=== PATIENT | male | born 1950 | race Caucasian/White ===

== ENCOUNTER 2017-04-05 09:17 | Inpatient (IN) | payer MEDICARE, MEDICAID ==
[~2017-04-05] VITALS: Ht 182.9 cm; Wt 81.6 kg
[2017-04-05 09:41] LABS: BASOPHILS % (AUTO) 0.4 % (0.0-2.0); EOSINOPHILS # (AUTO) 0.1 /CMM (0.0-0.7); HEMATOCRIT 43 % (39-51); HEMOGLOBIN 14.3 g/dL (13.5-17.5); LYMPHOCYTES # (AUTO) 1.3 /CMM (0.8-4.8); MEAN CORPUSCULAR HEMOGLOBIN 29 PG (26.0-33.0); MEAN CORPUSCULAR HGB CONC 33 g/dl (31.0-36.0); MEAN CORPUSCULAR VOLUME 87 fL (80-96); MONOCYTES # (AUTO) 0.3 /CMM (0.1-1.30); MONOCYTES % (AUTO) 5.8 % (2.0-12.0); NEUTROPHILS % (AUTO) 69.8 % (43.0-81.0); PLATELET COUNT (AUTO) 224 /CMM (150-450); RDW COEFFICIENT OF VARIATION 13.3 (11.5-15.0); RED BLOOD CELL COUNT(AUTO) 4.98 MIL/uL (4.5-6.0); WHITE BLOOD COUNT (AUTO) 5.7 K/uL (4.3-11.0)
[2017-04-05] MEDS ORDERED: METO25TA20 PO (09:43)
[2017-04-05] MEDS ORDERED: QUET200T PO (09:43)
[2017-04-05] MEDS ORDERED: OMEP40CA37 PO (09:43)
[2017-04-05] MEDS ORDERED: BUPR300T52 PO (09:43)
[2017-04-05] MEDS ORDERED: GABA-534 PO (09:43)
[2017-04-05] MEDS ORDERED: HYDR-552 PO (09:43)
[2017-04-05] MEDS ORDERED: TRAM50TA2 PO (09:43)
[2017-04-05] MEDS ORDERED: ATOR40TA PO (09:43)
[2017-04-05 09:51] LABS: CALCIUM, SERUM 8.2 mg/dL (8.5-10.1); CREATININE 1.1 mg/dL (0.6-1.3); POTASSIUM 4.4 mmol/L (3.5-5.1)
[2017-04-05 09:57] LABS: ALBUMIN 3.5 g/dL (3.4-5.0); BILIRUBIN,DIRECT 0.1 mg/dL (0.0-0.2); BILIRUBIN,TOTAL 0.4 mg/dL (0.2-1.0); TOTAL PROTEIN, SERUM 7.2 g/dL (6.4-8.2)
[2017-04-05] MEDS ORDERED: LIDOCAINE 1%-EPI 1:100,000 50 ML VIAL IJ ONE (10:00)
[2017-04-05] MEDS ORDERED: TDAP [DIPH/PERTUSSIS/TET] 0.5 ML VIAL IM ONE ×2 (10:00→10:06)
[2017-04-05] MEDS ORDERED: LIDOCAINE HCL/PF 1% 30 ML SDV ONE (10:06)
[2017-04-05 10:07] LABS: PROTHROMBIN TIME 10.4 SECS (9.5-12.7)
[2017-04-05] MEDS ORDERED: HALOPERIDOL LACTATE INJ 5 MG/ML VIAL ONE (10:29)
[2017-04-05] MEDS ORDERED: BENZTROPINE MESYLATE (2MG/2ML) 2 MG/2 ML AMPUL ONE (10:29)
[2017-04-05] MEDS ORDERED: LORAZEPAM INJ 2 MG/ML VIAL ONE (10:30)
[2017-04-05] MEDS ORDERED: HALOPERIDOL LACTATE INJ 5 MG/ML VIAL IM ONE (10:30)
[2017-04-05] MEDS ORDERED: LORAZEPAM INJ 2 MG/ML VIAL IM ONE (10:30)
[2017-04-05] MEDS ORDERED: BENZTROPINE MESYLATE (2MG/2ML) 2 MG/2 ML AMPUL IM ONE (10:30)
--- NOTE | 2017-04-05 12:00 | NUR ---
ASSUME PT CARE. HERE FOR MEDICAL AND PSYCH EVAL. SI. PRESENTS W/ LFA LACERATION FOR POSSIBLE SELF INFLICT WOUND APPROX 5CM. ERICK YADAV AT BEDSIDE FOR LAC REPAIR. ON MONITOR. STABLE VITAL. WILL CONTINUE TO MONITOR.
--- NOTE | 2017-04-05 12:25 | NUR ---
PATIENT WILL BE ADMITTED INTO ROOM 212-2.
--- NOTE | 2017-04-05 12:29 | NUR ---
CALLED ART MONEY MANAGER, ETA OF 1HR WAS GIVEN.
--- NOTE | 2017-04-05 14:18 | NUR ---
ART MONORAIL OPERATOR AT BEDSIDE FOR PSYCH EVAL.
--- NOTE | 2017-04-05 15:38 | NUR ---
REPORT GIVEN TO BLAYNE. PT AWAITING TRANSFER TO FLOOR.
[2017-04-05 16:00] VITALS: BP 103/65
--- NOTE | 2017-04-05 16:04 | NUR ---
GPS RN: RECEIVED PATIENT FROM THE ER, NOT IN ANY DISTRESS, UNCOOPERATIVE, GUARDED, IRRITABLE, REFUSED SKIN ASSESSMENT, REFUSED TO SIGN PAPERWORK. PER ER REPORT PATIENT CAME IN DRUNK WITH 5 CM LEFT ARM SELF-INFLICTED LACERATION, WHICH WAS STITCHED IN THE ER AND COVERED WITH DRESSING. PATIENT STILL APPEARED TO BE INEBRIATED AT THIS TIME, FELL ASLEEP IN THE MIDDLE OF THE CONVERSATION. CONTINUE TO MONITOR.
[2017-04-05] MEDS ORDERED: MAGNESIUM HYDROXIDE 30 ML UDC PO PRN (16:30)
[2017-04-05] MEDS ORDERED: ACETAMINOPHEN 325 MG TABLET PO PRN (16:30)
[2017-04-05] MEDS ORDERED: TEMAZEPAM 7.5 MG CAPSULE PO PRN (16:30)
[2017-04-05] MEDS ORDERED: LORAZEPAM 0.5 MG TABLET PO PRN (16:30)
[2017-04-05] MEDS ORDERED: MAG HYDROX/AL HYDROX/SIMETH 30 ML UDC PO PRN (16:30)
--- NOTE | 2017-04-05 16:35 | NUR ---
GPS RN: DR. HUDDLESTON NOTIFIED TO RECONCILE MEDS.
[2017-04-05] MEDS ORDERED: TRAMADOL HCL 50 MG TABLET PO PRN (18:00)
[2017-04-05] MEDS ORDERED: HYDROCODONE/APAP 5/325MG 1 EACH TABLET PO PRN (18:00)
--- NOTE | 2017-04-05 18:13 | NUR ---
GPS RN: PATIENT IS STILL ASLEEP SINCE ADMISSION AT 1600. UNABLE TO PERFORM SKIN ASSESSMENT, WILL ENDORSE TO THE UPCOMING SHIFT.
[2017-04-05 20:36] VITALS: BP 127/72
--- NOTE | 2017-04-06 06:47 | NUR ---
GPS RN NOTE: PATIENT STILL REFUSED SKIN ASSESSMENT. PATIENT NOTED TO BE DEPRESSED AND ISOLATIVE, UNCOOPERATIVE, REFUSED INTERACTION AND EASILY AGITATED. CN AWARE. WILL CONTINUE TO MONITOR [id number] FOR SAFETY
--- NOTE | 2017-04-06 07:04 | NUR ---
GPS RN NOTE: PATIENT REFUSED LAB DRAW. EXPLAINED THE RISK AND BENEFITS, PATIENT STILL REFUSED, WILL ENDORSE TO THE NEXT SHIFT TO CONTINUE TO FOLLOW UP.
[2017-04-06] MEDS ORDERED: PANTOPRAZOLE 40 MG TABLET.DR PO SCH (07:30)
[2017-04-06 08:00] VITALS: BP 132/65
[2017-04-06] MEDS ORDERED: ATORVASTATIN 40 MG TABLET PO SCH (09:00)
[2017-04-06] MEDS: GABAPENTIN 300 MG CAPSULE PO SCH ×3 (09:04→16:45)
[2017-04-06] MEDS: METOPROLOL TARTRATE 25 MG TABLET PO SCH ×2 (09:05→16:45)
[2017-04-06] MEDS ORDERED: NICOTINE PATCH (21MG) 21 MG PATCH.TD24 TD SCH (11:30)
[2017-04-06] MEDS ORDERED: QUETIAPINE FUMARATE 25 MG TABLET PO SCH (13:00)
[2017-04-06 13:28] LABS: ALBUMIN 3.2 g/dL (3.4-5.0); BILIRUBIN,TOTAL 0.7 mg/dL (0.2-1.0); CALCIUM, SERUM 8.4 mg/dL (8.5-10.1); TOTAL PROTEIN, SERUM 7.1 g/dL (6.4-8.2)
[2017-04-06 13:30] LABS: CHOLESTEROL 150 mg/dL (<200); HDL CHOLESTEROL 47 mg/dL (40-60); LDL 86 mg/dL (0-99); TRIGLYCERIDES 112 mg/dL (30-150)
[2017-04-06 16:00] VITALS: BP 140/88
--- NOTE | 2017-04-06 16:14 | NUR ---
GPS/RN PT C/O CHEST PAIN. DR HUDDLESTON CALLED FOR THE ORDERS. WAITING FOR CALL BACK.
--- NOTE | 2017-04-06 16:38 | NUR ---
GPS/RESEARCH CHEF ORDERS FROM DR KISER RECEIVED AND CARRIED OUT. WAITING FOR ROOM TO TRANSFER THE PATIENT TO TELE.
[2017-04-06 16:45] VITALS: BP 117/71
--- NOTE | 2017-04-06 17:15 | NUR ---
GPS/RN PT TRANSFERRED TO TELE 3W WITH SITTER .REPORT GIVEN TO ANNI CHOWDARY AT THE BEDSIDE. 1700 MEDS GIVEN PRIOR TO D/C
[2017-04-06] MEDS ORDERED: QUETIAPINE FUMARATE 100 MG TABLET PO SCH (22:00)
== END 2017-04-06 17:11 | disposition short-term general hospital (02) | DRG 876 ==
LOC: ER 09:26 → GPS 15:00
PROVIDERS: ADMIT Psychiatry & Neurology Psychosomatic Medicine; ATTEND Internal Medicine
PROC: 0JQF0ZZ Repair Left Upper Arm Subcutaneous Tissue and Fascia, Open Approach (ICD-10-PCS; principal; 2017-04-05)
DX: F31.9 Bipolar disorder, unspecified (principal); R45.851 Suicidal ideations; F23 Brief psychotic disorder; F10.10 Alcohol abuse, uncomplicated; S51.812A Laceration without foreign body of left forearm, initial encounter; X58.XXXA Exposure to other specified factors, initial encounter; Y92.89 Other specified places as the place of occurrence of the external cause; G62.9 Polyneuropathy, unspecified; I10 Essential (primary) hypertension; E78.5 Hyperlipidemia, unspecified; I25.10 Atherosclerotic heart disease of native coronary artery without angina pectoris
CPT/HCPCS: 36415; 80048-TC; 80053-TC; 80061-TC; 80076-TC; 80305; 84484-TC; 85025-TC; 85730-TC; 87081-TC; 90715; A4606; A6402; A6403; G0480; J0515; J1630; J2060; J3490; Z7610

== ENCOUNTER 2017-04-06 17:25 | Inpatient (IN) | payer MEDICARE, MEDICAID ==
[~2017-04-06] VITALS: Ht 182.9 cm; Wt 81.6 kg
[2017-04-06] VITALS: BP 93/51
[~2017-04-06 17:25] MED LIST: ATOR40TA PO; BUPR300T52 PO; GABA-534 PO; HYDR-552 PO; METO25TA20 PO; OMEP40CA37 PO; QUET200T PO; TRAM50TA2 PO
--- NOTE | 2017-04-06 17:25 | NUR ---
DRAW STRING KNOTTER NOTES RECEIVED PT FROM [facility] PSYCH, AWAKE, HOB ELEVATED, NO SOB OR DISTRESS NOTED. PATIENT COMPLAINS OF PRESSURE IN THE PAIN 3/10 PAIN LEVEL. PT A/O X 3 VERBALLY RESPONSIVE AND ABLE TO MAKE TO NEEDS KNOWN. KEPT PATIENT CLEAN AND COMFORTABLE IN BED, CALL LIGHT WITHIN PATIENT REACH. WILL CONTINUE TO MONITOR ACCORDINGLY.
[2017-04-06] MEDS ORDERED: TEMAZEPAM 7.5 MG CAPSULE PO PRN (17:57)
[2017-04-06] MEDS ORDERED: MAG HYDROX/AL HYDROX/SIMETH 30 ML UDC PO PRN (17:57)
[2017-04-06] MEDS ORDERED: LORAZEPAM 0.5 MG TABLET PO PRN (17:57)
[2017-04-06] MEDS ORDERED: ACETAMINOPHEN 325 MG TABLET PO PRN (17:57)
[2017-04-06] MEDS ORDERED: MAGNESIUM HYDROXIDE 30 ML UDC PO PRN (17:57)
[2017-04-06 18:38] LABS: HEMOGLOBIN 15.1 g/dL (13.5-17.5)
--- NOTE | 2017-04-06 18:56 | NUR ---
RN CLOSING NOTES ALL NEEDS PROVIDED, ATTENDED AND ANTICIPATED. KEPT PATIENT CLEAN AND COMFORTABLE IN BED. CALL LIGHT WITHIN PATIENT REACH, WILL CONTINUE TO MONITOR ACCORDINGLY. ENDORSED TO NEXT SHIFT RN TO CONTINUE CARE.
--- NOTE | 2017-04-06 19:26 | NUR ---
ASSOCIATE PROFESSOR OF MEDICINE OPENING NOTES: RECEIVED PT IN BED AWAKE. PT IS A/OX 4. SITTER AT BEDSIDE. PT IS ON TELE AND IS SINUS CHARLES 50S. PT IS ON ROOM AIR AND IS TOLERATING WELL. CALL LIGHT WITHIN PT'S REACH. BED KEPT IN LOW, LOCKED POSITION, AND SIDE RAILS X 2 UP. PT HAS NO IV AT THIS MOMENT. WILL CONTINUE TO MONITOR PT.
[2017-04-06] MEDS ORDERED: ASPIRIN 81 MG TAB.CHEW ONE (19:40)
[2017-04-06 20:00] VITALS: BP 112/68
[2017-04-06] MEDS: ASPIRIN 81 MG TAB.CHEW PO SCH (20:13)
[2017-04-06] MEDS: TRAMADOL HCL 50 MG TABLET PO PRN (20:24)
--- NOTE | 2017-04-06 20:24 | NUR ---
PET TECHNOLOGIST NOTES: PT COMPLAINED OF 8/10 LOWER BACK PAIN. PT WAS ADMINISTERED ULTRAM 50MG PO. WILL CONTINUE TO MONITOR PT.
[2017-04-06 20:25] LABS: CHOLESTEROL 149 mg/dL (<200); HDL CHOLESTEROL 44 mg/dL (40-60); LDL 86 mg/dL (0-99); TRIGLYCERIDES 116 mg/dL (30-150)
--- NOTE | 2017-04-06 22:31 | NUR ---
SPINNING FRAME CHANGER NOTES: PT REQUESTED FOR RESTORIL. PT WAS ADMINISTERED RESTORIL. WILL CONTINUE TO MONITOR PT.
--- NOTE | 2017-04-06 23:27 | NUR ---
BOX ANNEALER NOTE: SPOKE TO DR. RODAS ABOUT PT REQUESTING NEOSPORIN FOR HIS CLOSED WOUND ON HIS L ARM. PT IS Addendum: 04/06/17 at 4709 by JILLIAN WEINBERG RN PT IS REQUESTING FOR NEOSPORIN TO APPLY AROUND IT. GOT THE ORDER.
--- NOTE | 2017-04-06 23:40 | NUR ---
ELECTRONIC TEST TECHNICIAN NOTE: SENT ORDER FOR NEOSPORIN TO VOCATIONAL TECHNICAL EDUCATION TEACHER LYDIA VIA FAX. LYDIA SAID IT WAS UNAVAILABLE AND SAID TO TRY [facility]. CALLED [facility] AND CHECKED TO SEE IF THEY HAVE NEOSPORIN. [facility] CALLED BACK AND SAID THEY DO NOT HAVE NEOSPORIN WELL. WILL ENDORSE WITH AM NURSE.
[2017-04-07] VITALS (7 sets, daily range): BP systolic 93–126; BP diastolic 51–85
--- NOTE | 2017-04-07 01:50 | NUR ---
PASTE MIXER LIQUID NOTES: PT REPORTED THAT HE IS UPSET THAT HE IS GETTING BLOOD DRAWN AGAIN FOR THE THIRD TIME FOR HIS TROPONIN LEVEL AT THIS TIME. PT WAS ADMINISTERED ATIVAN 1MG PO.
--- NOTE | 2017-04-07 01:54 | NUR ---
PATIENT CARE DIRECTOR NOTES: SPOKE WITH DR. RODAS IN REGARDS TO HIS SEROQUEL 200MG PO HS. DR. RODAS MENTIONED THAT IT HAS TO BE PYSTEPHANIE SIMENTAL TO CARRY ON THE ORDER. CHARGE NURSE AWARE WELL. WILL CLARIFY DURING THE DAY. PT IS UNABLE TO SLEEP EVEN AFTER RESTORIL. WILL OFFER ATIVAN 1MG PO INSTEAD.
[2017-04-07] MEDS: HYDROCODONE/APAP 5/325MG 1 EACH TABLET PO PRN (05:01)
--- NOTE | 2017-04-07 05:01 | NUR ---
ROUTING CLERK NOTES: PT COMPLAINED OF 8/10 LOWER BACK PAIN. PT WAS ADMINISTERED NORCO 5-325MG PO. WILL CONTINUE TO MONITOR PT.
--- NOTE | 2017-04-07 06:55 | NUR ---
SPARK PLUG TESTER CLOSING NOTES: ALL NEEDS WERE ATTENDED AND ANTICIPATED FOR. SITTER AT BEDSIDE. PT IS IN BED, RESTING. PT IS A/OX 4. PT IS ON TELE AND IS SR 64. PT IS ON ROOM AIR AND IS TOLERATING WELL. CALL LIGHT WITHIN PT'S REACH. BED KEPT IN LOW, LOCKED POSITION, AND SIDE RAILS X 2 UP. PT HAS IV ON R FOREARM #22G AND IS PATENT AND INTACT. KEPT CLEAN, DRY, AND COMFORTABLE. WILL ENDORSE TO AM NURSE FOR TRIXIE.
--- NOTE | 2017-04-07 07:31 | NUR ---
MEDICAL CLAIMS PROCESSOR OPEN NOTES RECEIVED REPORT FROM CUTTER GAS NURSE. PATIENT IS IN BED, ALERT AND ORIENTED TO NAME, TIME AND PLACE. NO SIGNS AND SYMPTOMS OF DISTRESS. 1:1 SITTER FOR SAFETY PATIENT DTS. BED IN LOW POSITION, LOCKED AND TWO SIDE RAILS ARE UP. WILL CONTINUE TO MONITOR AND ASSESS PATIENT.
[2017-04-07] MEDS: GABAPENTIN 300 MG CAPSULE PO SCH ×3 (08:38→17:12)
[2017-04-07] MEDS: ASPIRIN 81 MG TAB.CHEW PO SCH (08:41)
[2017-04-07] MEDS: ATORVASTATIN 40 MG TABLET PO SCH (08:41)
[2017-04-07] MEDS: NICOTINE PATCH (21MG) 21 MG PATCH.TD24 TD SCH (08:42)
[2017-04-07] MEDS: PANTOPRAZOLE 40 MG TABLET.DR PO SCH (08:42)
[2017-04-07] MEDS: METOPROLOL TARTRATE 25 MG TABLET PO SCH ×2 (08:42→17:13)
--- NOTE | 2017-04-07 10:05 | NUR ---
MALLORY DYE IS AT BEDSIDE
[2017-04-07] MEDS: NEOMY SULF/BACITRAC ZN/POLY 15 GM TUBE TP PRN (11:26)
[2017-04-07] MEDS: DOCUSATE SODIUM 100 MG CAPSULE PO SCH (11:36)
[2017-04-07] MEDS: TRAMADOL HCL 50 MG TABLET PO PRN (17:12)
--- NOTE | 2017-04-07 19:50 | NUR ---
LIFE SCIENCES MANAGER NOTE: PATIENT RESTING IN BED, NO ACUTE DISTRESS NOTED. BREATHING EVEN AND UNLABORED, NO SOB NOTED. TELE READING SR 70. IV TO RFA IN PLACE. BED LOCKED AND IN LOWEST POSITION, CALL LIGHT IN REACH. WILL CONTINUE TO MONITOR.
[2017-04-07] MEDS ORDERED: QUETIAPINE FUMARATE 100 MG TABLET PO SCH (22:00)
[2017-04-08] VITALS: BP 97/54
[2017-04-08 03:41] VITALS: BP 120/80
--- NOTE | 2017-04-08 04:30 | NUR ---
RETAIL WORKER NOTE: PATIENT SLEEPING IN BED, NO ACUTE DISTRESS NOTED. BREATHING EVEN AND UNLABORED, NO SOB NOTED. SITTER AT BEDSIDE. BED LOCKED AND IN LOWEST POSITION, CALL LIGHT IN REACH. WILL CONTINUE TO MONITOR.
--- NOTE | 2017-04-08 06:15 | NUR ---
SOIL SCIENCE PROFESSOR NOTE: PATIENT RESTING IN BED, NO ACUTE DISTRESS NOTED. BREATHING EVEN AND UNLABORED, NO SOB NOTED. TELE READING SR 61. IV TO RFA IN PLACE. SITTER AT BEDSIDE. BED LOCKED AND IN LOWEST POSITION, CALL LIGHT IN REACH. WILL ENDORSE TO DAY NURSE TO CONTINUE WITH PLAN OF CARE.
[2017-04-08 06:30] LABS: BASOPHILS % (AUTO) 0.2 % (0.0-2.0); EOSINOPHILS # (AUTO) 0.2 /CMM (0.0-0.7); EOSINOPHILS % (AUTO) 2.3 % (0.0-6.0); HEMATOCRIT 45 % (39-51); LYMPHOCYTES # (AUTO) 2.2 /CMM (0.8-4.8); LYMPHOCYTES % (AUTO) 30.8 % (20.0-44.0); MEAN CORPUSCULAR HEMOGLOBIN 29 PG (26.0-33.0); MEAN CORPUSCULAR HGB CONC 33 g/dl (31.0-36.0); MEAN CORPUSCULAR VOLUME 88 fL (80-96); MONOCYTES # (AUTO) 0.5 /CMM (0.1-1.30); MONOCYTES % (AUTO) 6.4 % (2.0-12.0); NEUTROPHILS # (AUTO) 4.3 /CMM (1.8-8.9); NEUTROPHILS % (AUTO) 60.3 % (43.0-81.0); PLATELET COUNT (AUTO) 222 /CMM (150-450); RDW COEFFICIENT OF VARIATION 14.1 (11.5-15.0); RED BLOOD CELL COUNT(AUTO) 5.14 MIL/uL (4.5-6.0); WHITE BLOOD COUNT (AUTO) 7.1 K/uL (4.3-11.0)
[2017-04-08 06:48] LABS: CALCIUM, SERUM 9.1 mg/dL (8.5-10.1); CREATININE 0.9 mg/dL (0.6-1.3)
--- NOTE | 2017-04-08 07:20 | NUR ---
molder vacuum Initial Notes: Received patient resting in bed. Non-labored breathing noted. No shortness of breath. No signs of distress. No facial grimaces.. IV patent and intact. Bed at lowest position. Call light within reach. Heart rhythm 102/min, sinus rhythm. Will continue to monitor. Sitter at bedside.
[2017-04-08 08:00] VITALS: BP 126/75
[2017-04-08] MEDS: DOCUSATE SODIUM 100 MG CAPSULE PO SCH (08:14)
[2017-04-08] MEDS: ATORVASTATIN 40 MG TABLET PO SCH (08:14)
[2017-04-08] MEDS: PANTOPRAZOLE 40 MG TABLET.DR PO SCH (08:14)
[2017-04-08] MEDS: ASPIRIN 81 MG TAB.CHEW PO SCH (08:14)
[2017-04-08] MEDS: GABAPENTIN 300 MG CAPSULE PO SCH ×2 (08:15→12:27)
[2017-04-08] MEDS: METOPROLOL TARTRATE 25 MG TABLET PO SCH (08:15)
[2017-04-08] MEDS: NICOTINE PATCH (21MG) 21 MG PATCH.TD24 TD SCH (08:17)
[2017-04-08] MEDS: HYDROCODONE/APAP 5/325MG 1 EACH TABLET PO PRN (08:48)
--- NOTE | 2017-04-08 11:12 | NUR ---
WOUND CARE CONSULT: PT PRESENTS WITH SUTURED LACERATION TO LEFT ARM WITH SLIGHT REDNESS AND SLIGHT WEEPING. RECOMMEND SURGICAL FOLLOW UP. SMALL DRY ABRASION NOTED PROXIMALLY, NO DRAINAGE. RECOMMENDATIONS MADE FOR PROTECTION OF AREA. DISCUSSED WITH NURSING STAFF. WILL SEE PRN.
[2017-04-08 12:00] VITALS: BP 116/54
[2017-04-08] MEDS: NEOMY SULF/BACITRAC ZN/POLY 15 GM TUBE TP PRN (12:50)
[2017-04-08] MEDS ORDERED: QUET200T PO (13:22)
--- NOTE | 2017-04-08 15:50 | NUR ---
branding machine tenderhoistman notes Discharge instructions given to patient and able to understand instructions. Signed discharge paper and belonging list and belonging (wallet) from the safe given to patient. Discontinued IV and pressured applied to prevent bleeding. Flu vaccine not given due to off season. Pneumonia vaccine is not given also due to patient is <65 years old. Picture taken by mechanical maintenance foreman RN and filed in the chart. Patient friend (Rojelio) came to pick up driver the patient. Patient left the hospital in stable condition via ambulatory and tolerated well. Vital signs checked and recorded. MD and charge nurse aware.
== END 2017-04-08 16:00 | disposition home or self-care (01) | DRG 206 ==
LOC: TELE 17:25
PROVIDERS: ADMIT Internal Medicine; ATTEND Internal Medicine
DX: M94.0 Chondrocostal junction syndrome [Tietze] (principal); G62.9 Polyneuropathy, unspecified; I10 Essential (primary) hypertension; I25.10 Atherosclerotic heart disease of native coronary artery without angina pectoris; E78.5 Hyperlipidemia, unspecified; Z91.19 Patient's noncompliance with other medical treatment and regimen; F29 Unspecified psychosis not due to a substance or known physiological condition; Z73.6 Limitation of activities due to disability; F10.10 Alcohol abuse, uncomplicated; F31.9 Bipolar disorder, unspecified; Y90.9 Presence of alcohol in blood, level not specified; S51.812D Laceration without foreign body of left forearm, subsequent encounter; X58.XXXD Exposure to other specified factors, subsequent encounter; Z79.899 Other long term (current) drug therapy
CPT/HCPCS: 36415; 80048-TC; 80061-TC; 84484-TC; 85025-TC; 85027-TC; 93307-TC; Z7610

== ENCOUNTER 2017-04-22 17:30 | Emergency (ER) | payer MEDICARE, MEDICAID ==
[~2017-04-22] VITALS: Ht 177.8 cm; Wt 81.6 kg
[2017-04-22 17:30] VITALS: BP 110/71
[2017-04-22] MEDS ORDERED: HYDROCODONE/APAP 5/325MG 1 EACH TABLET PO ONE (18:30)
[2017-04-22] MEDS ORDERED: HYDROCODONE/APAP 10/325MG 1 EA TABLET ONE (19:05)
[2017-04-22 19:25] LABS: APPEARANCE,URINE Clear (CLEAR); BILIRUBIN,URINE Negative (NEGATIVE); BLOOD, URINE Trace-lysed Ery/uL (NEGATIVE); COLOR,URINE Yellow (YELLOW); KETONES,URINE Negative (NEGATIVE); LEUKOCYTE ESTERASE ,URINE Negative (NEGATIVE); NITRITE, URINE Negative (NEGATIVE); PROTEIN,URINE 100 mg/dl (NEGATIVE); UGLUCOSE 100 MG/DL mg/dL (NEGATIVE); UROBILINOGEN,URINE 0.2 EU/dL (0.2)
[2017-04-22 19:40] LABS: RBC,URINE 2-3/HPF /HPF (0-2)
[2017-04-22 19:41] LABS: BACTERIA,URINE Rare /HPF (None Seen); MUCUS,URINE Few /LPF (None Seen); SQUAMOUS EPITHELIAL CELL,UR Moderate /HPF (None Seen); URINE AMORPHOUS URATE Few /HPF (None Seen)
== END 2017-04-22 20:10 | disposition home or self-care (01) ==
LOC: ER 17:34
DX: N50.812 Left testicular pain (principal); M54.5 Low back pain; G89.29 Other chronic pain; Q79.59 Other congenital malformations of abdominal wall; N50.3 Cyst of epididymis; I10 Essential (primary) hypertension
CPT/HCPCS: 76870; 81001; 99285; A4606; 81000-TC; Z7610

== ENCOUNTER 2017-05-10 20:31 | Emergency (ER) | payer MEDICARE, MEDICAID ==
[~2017-05-10] VITALS: Ht 177.8 cm; Wt 81.6 kg
[2017-05-10 20:35] VITALS: BP 139/97
== END 2017-05-10 21:20 | disposition home or self-care (01) ==
LOC: ER 20:37
DX: N50.812 Left testicular pain (principal); I10 Essential (primary) hypertension
CPT/HCPCS: 99283; A4606; Z7610

== ENCOUNTER 2017-05-11 00:58 | Emergency (ER) | payer MEDICARE, MEDICAID ==
[~2017-05-11] VITALS: Ht 177.8 cm; Wt 81.6 kg
[2017-05-11 05:26] VITALS: BP 145/68
--- NOTE | 2017-05-11 05:32 | NUR ---
PT RECEIVED 10MG TORADOL IM AT LEFT DELTOID. VSS. EDUCATION PROVIDED TO PATIENT. RECOMMENDED TO SEE UROLOGIST ALREADY PLANNED. PT WAS DISCHARGED AND REFUSED TO REMOVE ID BAND.
== END 2017-05-11 05:32 | disposition home or self-care (01) ==
LOC: ER 01:01
DX: G89.29 Other chronic pain (principal); N50.812 Left testicular pain; I10 Essential (primary) hypertension; G89.4 Chronic pain syndrome
CPT/HCPCS: A4606; J1885; Z7610

== ENCOUNTER 2017-05-11 11:57 | Inpatient (IN) | payer MEDICARE, MEDICAID ==
[~2017-05-11] VITALS: Ht 177.8 cm; Wt 88.9 kg
[2017-05-11 12:29] LABS: BASOPHILS % (AUTO) 0.4 % (0.0-2.0); CALCIUM, SERUM 8.3 mg/dL (8.5-10.1); CARBON DIOXIDE 32 mmol/L (21-32); CHLORIDE 101 mmol/L (98-107); CREATININE 0.9 mg/dL (0.6-1.3); EOSINOPHILS # (AUTO) 0.1 /CMM (0.0-0.7); EOSINOPHILS % (AUTO) 1.2 % (0.0-6.0); GLUCOSE 100 mg/dL (74-106); HEMATOCRIT 42 % (39-51); HEMOGLOBIN 14.1 g/dL (13.5-17.5); LYMPHOCYTES # (AUTO) 2.2 /CMM (0.8-4.8); LYMPHOCYTES % (AUTO) 25.2 % (20.0-44.0); MEAN CORPUSCULAR HEMOGLOBIN 30 PG (26.0-33.0); MEAN CORPUSCULAR HGB CONC 33 g/dl (31.0-36.0); MEAN CORPUSCULAR VOLUME 90 fL (80-96); MONOCYTES # (AUTO) 0.7 /CMM (0.1-1.30); MONOCYTES % (AUTO) 7.9 % (2.0-12.0); NEUTROPHILS # (AUTO) 5.8 /CMM (1.8-8.9); NEUTROPHILS % (AUTO) 65.3 % (43.0-81.0); PLATELET COUNT (AUTO) 267 /CMM (150-450); POTASSIUM 3.6 mmol/L (3.5-5.1); RDW COEFFICIENT OF VARIATION 14.6 (11.5-15.0); SODIUM SERUM 139 mmol/L (136-145); UREA NITROGEN, BLOOD 15 mg/dL (7-18); WHITE BLOOD COUNT (AUTO) 8.8 K/uL (4.3-11.0)
[2017-05-11 12:34] LABS: ACETAMINOPHEN 1 ug/ml (10-30); ALANINE AMINOTRANSFERASE 38 U/L (12-78); ALBUMIN 3.5 g/dL (3.4-5.0); ALCOHOL, BLOOD < 3 mg/dL (0-0); ALKALINE PHOSPHATASE 73 U/L (46-116); ASPARTATE AMINOTRANSFERASE 27 U/L (15-37); BILIRUBIN,DIRECT 0.2 mg/dL (0.0-0.2); BILIRUBIN,TOTAL 0.9 mg/dL (0.2-1.0); SALICYLATE 4.3 mg/dL (2.8-20.0); TOTAL PROTEIN, SERUM 6.8 g/dL (6.4-8.2)
[2017-05-11 12:37] LABS: APPEARANCE,URINE Clear (CLEAR); BILIRUBIN,URINE MODERATE (NEGATIVE); BLOOD, URINE Negative Ery/uL (NEGATIVE); COLOR,URINE Yellow (YELLOW); KETONES,URINE 15 (NEGATIVE); LEUKOCYTE ESTERASE ,URINE Negative (NEGATIVE); NITRITE, URINE Negative (NEGATIVE); PROTEIN,URINE 30 mg/dl (NEGATIVE); UGLUCOSE Negative (NEGATIVE)
[2017-05-11 12:46] LABS: BACTERIA,URINE Rare /HPF (None Seen); RBC,URINE 0-2 /HPF (0-2); SQUAMOUS EPITHELIAL CELL,UR Few /HPF (None Seen); WBC,URINE 0-2 /HPF (0-3)
[2017-05-11 15:50] VITALS: BP 141/86
[2017-05-11 20:00] VITALS: BP_SYST 106; BP_SYST 107; BP_DIAS 66
[2017-05-12 08:08] LABS: ALBUMIN 2.8 g/dL (3.4-5.0); BILIRUBIN,TOTAL 0.4 mg/dL (0.2-1.0); CALCIUM, SERUM 8.6 mg/dL (8.5-10.1); CREATININE 0.8 mg/dL (0.6-1.3); POTASSIUM 3.9 mmol/L (3.5-5.1); TOTAL PROTEIN, SERUM 5.9 g/dL (6.4-8.2)
[2017-05-12 08:20] VITALS: BP 101/59
[2017-05-12 16:00] VITALS: BP 110/67
[2017-05-12 19:44] VITALS: BP 99/80
[2017-05-13 08:00] VITALS: BP 128/77
[2017-05-13 13:00] VITALS: BP 108/78
[2017-05-13 16:00] VITALS: BP 108/78
[2017-05-13 20:18] VITALS: BP 97/47
[2017-05-14 08:00] VITALS: BP 105/63
[2017-05-14 16:00] VITALS: BP 115/64
[2017-05-14 20:27] VITALS: BP 107/68
[2017-05-15 08:10] VITALS: BP 112/73
[2017-05-15 16:15] VITALS: BP 110/63
[2017-05-15 20:00] VITALS: BP 103/60
[2017-05-15 20:17] VITALS: BP 103/60
[2017-05-16 08:00] VITALS: BP 123/61
[2017-05-16 16:00] VITALS: BP 140/63
[2017-05-17 08:17] VITALS: BP 128/63
[2017-05-17 16:00] VITALS: BP 105/58
[2017-05-17 20:00] VITALS: BP 112/70
[2017-05-18 08:00] VITALS: BP 129/69
[2017-05-18 08:21] VITALS: BP 129/69
== END 2017-05-18 11:00 | DRG 885 ==
LOC: ER 12:01 → GPS 13:36
PROVIDERS: ADMIT Psychiatry & Neurology Psychosomatic Medicine; ATTEND Psychiatry & Neurology Psychosomatic Medicine
DX: F31.9 Bipolar disorder, unspecified (principal); R45.851 Suicidal ideations; G62.9 Polyneuropathy, unspecified; I10 Essential (primary) hypertension; F19.10 Other psychoactive substance abuse, uncomplicated; G89.4 Chronic pain syndrome; N43.41 Spermatocele of epididymis, single; F29 Unspecified psychosis not due to a substance or known physiological condition; Z73.6 Limitation of activities due to disability; I25.10 Atherosclerotic heart disease of native coronary artery without angina pectoris; E78.5 Hyperlipidemia, unspecified; Z91.19 Patient's noncompliance with other medical treatment and regimen; Z91.14 Patient's other noncompliance with medication regimen; Z79.899 Other long term (current) drug therapy; Z76.5 Malingerer [conscious simulation]; N43.3 Hydrocele, unspecified
CPT/HCPCS: 36415; 76870-TC; 80048-TC; 80053-TC; 80061-TC; 80076-TC; 80305; 81000-TC; 85025-TC; A4606; G0480; J1650; J3490; Z7610